=== PATIENT | female | born 1985 | race American Indian/Alaskan Native ===

== ENCOUNTER 2021-10-29 02:01 | Emergency (ER) | payer OTHER ==
[2021-10-29 02:20] VITALS: BP 143/93
[2021-10-29] MEDS ORDERED: IBUPROFEN 600 MG TAB PO ONE (02:48)
[2021-10-29] MEDS ORDERED: ACETAMINOPHEN 500 MG TAB PO ONE (02:48)
[2021-10-29] MEDS ORDERED: CYCLOBENZAPRINE 10 MG TAB PO ONE (02:48)
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
== END 2021-10-29 03:50 | disposition home or self-care (01) ==
LOC: ED 02:01
DX: S46.912A Strain of unspecified muscle, fascia and tendon at shoulder and upper arm level, left arm, initial encounter (principal); M62.830 Muscle spasm of back; X58.XXXA Exposure to other specified factors, initial encounter; Y93.89 Activity, other specified; Y92.89 Other specified places as the place of occurrence of the external cause; Y99.8 Other external cause status
CPT/HCPCS: 99282